=== PATIENT | female | born 1985 | race Caucasian/White ===

== ENCOUNTER 2017-10-04 14:43 | Emergency (ER) | payer BC ==
[2017-10-04 15:15] VITALS: BP 120/68
--- NOTE | 2017-10-04 15:31 | UC ---
FLU HPI - HPI Summary HPI Summary: 32 y/o female presents to the urgent care c/o dry cough with decrease appetite, diarrhea and nausea since 09/30/2017. Pt reports symptoms started with a dry cough about 3 weeks ago. However, Wednesday she developed diarrhea with 2 episodes each day. Yesterday she started to take Imodium PO and diarrhea is resolving. Pt feels weak, decrease appetite with mild SOB at times. She has been drinking fluids. Pt denies fever,vomiting, abdominal pain, chest pain - History of Current Complaint Hx Obtained From: Patient Hx Last Menstrual Period: 09/22/17 Onset/Duration: Gradual Onset, Lasting Weeks - 3 weeks of dry cough, Worse Since - 5 days with diarrhea Severity Currently: Mild Severity Initially: Moderate Pain Intensity: 0 Pain Scale Used: 0-10 Numeric Associated Signs & Symptoms: Positive: Myalgia, Cough, Headache. Negative: Fever - Risk Factors Influenza Risk Factors: Negative <Deloris Garcia - Last Filed: 10/06/17 10:54> <Isis Rojas - Last Filed: 10/07/17 09:45> - History of Current Complaint Chief Complaint: UCGeneralIllness Stated Complaint: NAUSEA,DIARRHEA,COUGH,BODY ACHES Time Seen by Provider: 10/04/17 15:17 - Allergy/Home Medications Allergies/Adverse Reactions: Allergies Allergy/AdvReac Type Severity Reaction Status Date / Time No Known Allergies Allergy Verified 10/04/17 15:15 Home Medications: Home Medications Loperamide CAP* [Imodium CAP*] 2 mg PO Q4H PRN 10/04/17 [History Confirmed 10/04] PMH/Surg Hx/FS Hx/Imm Hx Previously Healthy: Yes - Pt denies PMHX - Surgical History Surgical History: Yes Surgery Procedure, Year, and Place: SINUS SURGERY REMOVED POLYPS - Family History Known Family History: Positive: Cardiac Disease, Hypertension Family History: Dyslipidemia - Social History Occupation: Employed Full-time Lives: With Family Alcohol Use: None Substance Use Type: None Smoking Status (MU): Former Smoker <Deloris Garcia - Last Filed: 10/06/17 10:54> Review of Systems Constitutional: Fatigue, Other - body aches Skin: Negative Eyes: Negative ENT: Negative Respiratory: Cough - dry Cardiovascular: Negative Gastrointestinal: Diarrhea Genitourinary: Negative Motor: Negative Neurovascular: Negative Musculoskeletal: Negative Neurological: Headache Psychological: Negative Is Patient Immunocompromised?: No All Other Systems Reviewed And Are Negative: Yes <RadhaDeloris - Last Filed: 10/06/17 10:54> Physical Exam Triage Information Reviewed: Yes Vital Signs: Initial Vital Signs Temp 99.6 F 10/04/17 15:10 Pulse 77 10/04/17 15:10 Resp 16 10/04/17 15:10 BP 120/68 10/04/17 15:10 Pulse Ox 99 10/04/17 15:10 - Additional Comments Vital Signs Reviewed: Yes General:Patient is a well developed and nourished female who is sitting comfortable in the examining table. Patient is not in any acute respiratory distress. Eyes: Positive: Conjunctiva Clear - PERRLA, EOMI, fundi grossly normal ENT: Positive: Normal ENT inspection, Hearing grossly normal, Pharynx normal, TMs normal Neck: Positive: Supple, Nontender, No Lymphadenopathy Respiratory: Positive: Chest non-tender, Lungs clear, Normal breath sounds, No respiratory distress Cardiovascular: Positive: RRR,S1 and S2 present, No Murmur, Pulses Normal, Brisk Capillary Refill Abdomen Description: Positive: Nontender, Flat with no distention. No surface trauma, scars, incisions. hyperactive bowel sounds present in all four quadrants. No tenderness, guarding, rigidity to palpation. No masses palpated, no pulsation in epigastric area. No organomegaly. Negative Phoenix signs. No periumbilical tenderness. No rebound in the lower quadrants. NT over McBurneys point. Good femoral pulses bilaterally. No hernia noted. No CVAT bilaterally Musculoskeletal: Positive: Strength Intact, ROM Intact, No Edema,FROM in all major joints, no edema, no cyanosis or clubbing. Neuro: Alert and oriented x 3. No acute neurological deficits. Speech is normal. Psychological: WNL Skin: Dry and warm <Deloris Garcia - Last Filed: 10/06/17 10:54> Vital Signs: Initial Vital Signs Temp 99.6 F 10/04/17 15:10 Pulse 77 10/04/17 15:10 Resp 16 10/04/17 15:10 BP 120/68 10/04/17 15:10 Pulse Ox 99 10/04/17 15:10 <Isis Rojas - Last Filed: 10/07/17 09:45> Flu Course/Dx - Course Course Of Treatment: 32 y/o female presents to the urgent care c/o dry cough with decrease appetite, diarrhea and nausea since 09/30/2017. Pt reports symptoms started with a dry cough about 3 weeks ago. However, Wednesday she developed diarrhea with 2 episodes each day. Yesterday she started to take Imodium PO and diarrhea is resolving. Pt feels weak, decrease appetite with mild SOB at times. She has been drinking fluids. Pt denies fever,vomiting, abdominal pain, chest pain. Hx obtained. PE WNL. Dirrhea is reolving today. Pt advised to continue with Increase fluid intake w/ gatorade, eat soft meals and rest. Rx Tessalon tabs PO to alleviate cough.However if symptoms worsen and abdominal pain develops to go Immediately to the ER for further management. Pt explained D/C instructions. Pt understood and agreed w/ plan of care. Pt left the clinic ambulating, A&OX3 - Differential Dx/Diagnosis Differential Diagnosis/HQI/PQRI: Bronchitis, Influenza, Upper Respiratory Infection, Other - gastroenteritis, viral syndrome Provider Diagnoses: 1- Gastroenteritis. 2- Cough <Deloris Garcia - Last Filed: 10/06/17 10:54> Discharge <Deloris Garcia - Last Filed: 10/06/17 10:54> <Isis Rojas - Last Filed: 10/07/17 09:45> - Discharge Plan Condition: Stable Disposition: HOME Prescriptions: Benzonatate CAP* [Tessalon 100 MG CAP*] 100 mg PO TID #15 cap Patient Education Materials: Gastroenteritis (ED) Forms: *Work Release Referrals: [facility] [place] [facility] REFERRAL [Outside] - 3 Days Additional Instructions: 1- Please increase fluid intake with Gatorade or Pedialyte OTC. eat soft meals and rest. 2- Keep taking Imodium PO as directed to alleviate diarrhea 3- If you develops fever or abdominal pain w/ recurrent episodes of diarrhea please go the ER, otherwise f/u with your PCP if diarrhea not resolving in 2-3 days 4- Please take Tessalon tabs PO as directed to alleviate cough Attestation Statement User Type: Provider - I was available for consult. This patient was seen by the KADE[facility]. The patient was not presented to, seen by, or examined by me. -Brody <Isis Rojas - Last Filed: 10/07/17 09:45>
== END 2017-10-04 15:47 | disposition home or self-care (01) ==
LOC: UCCORT 14:43
DX: K52.9 Noninfective gastroenteritis and colitis, unspecified (principal); R05 Cough; M79.1 Myalgia; R51 Headache; Z87.891 Personal history of nicotine dependence
CPT/HCPCS: 99212; G0463

== ENCOUNTER 2017-12-07 12:26 | Emergency (ER) | payer BC ==
[2017-12-07 13:21] VITALS: BP 100/88
--- NOTE | 2017-12-07 13:26 | UC ---
Throat Pain/Nasal Maco HPI - HPI Summary HPI Summary: sinus pain and pressure x 2 weeks nasal congestion , pnd, no fever, no chills no cough - History of Current Complaint Chief Complaint: UCRespiratory Stated Complaint: SINUSES Time Seen by Provider: 12/07/17 13:07 Hx Obtained From: Patient Hx Last Menstrual Period: 11/29/17 ?: No Onset/Duration: Gradual Onset, Lasting Weeks - 2, Still Present Severity: Moderate Pain Intensity: 7 Cough: None Associated Signs & Symptoms: Positive: Sinus Discomfort, Nasal Discharge. Negative: Negative, Dysphagia, FB Sensation, Drooling, Wheezing, Hoarseness, Fever, Vomiting, Rash - Allergies/Home Medications Allergies/Adverse Reactions: Allergies Allergy/AdvReac Type Severity Reaction Status Date / Time No Known Allergies Allergy Verified 12/07/17 13:12 PMH/Surg Hx/FS Hx/Imm Hx Previously Healthy: Yes - Surgical History Surgical History: Yes Surgery Procedure, Year, and Place: SINUS SURGERY REMOVED POLYPS - Family History Known Family History: Positive: None, Cardiac Disease, Hypertension Family History: Dyslipidemia - Social History Alcohol Use: None Substance Use Type: None Smoking Status (MU): Never Smoked Tobacco Review of Systems Constitutional: Negative Skin: Negative Eyes: Negative ENT: Nasal Discharge, Sinus Congestion, Sinus Pain/Tenderness Respiratory: Negative Cardiovascular: Negative Gastrointestinal: Negative Is Patient Immunocompromised?: No All Other Systems Reviewed And Are Negative: Yes Physical Exam Triage Information Reviewed: Yes Appearance: Well-Appearing, No Pain Distress, Well-Nourished Vital Signs: Initial Vital Signs Temp 98.9 F 12/07/17 13:14 Pulse 81 12/07/17 13:14 Resp 18 12/07/17 13:14 BP 100/88 12/07/17 13:14 Pulse Ox 100 12/07/17 13:14 Vital Signs Reviewed: Yes Eyes: Positive: Conjunctiva Clear ENT: Positive: Normal ENT inspection, Hearing grossly normal, Pharynx normal, Nasal congestion, Nasal drainage, TMs normal, Sinus tenderness Neck: Positive: Supple, Nontender, No Lymphadenopathy Respiratory: Positive: Chest non-tender, Lungs clear, Normal breath sounds, No respiratory distress Cardiovascular: Positive: RRR, No Murmur, Pulses Normal Musculoskeletal: Positive: Strength Intact, ROM Intact, No Edema Skin Exam: Normal Throat Pain/Nasal Course/Dx - Differential Dx/Diagnosis Provider Diagnoses: sinusitis Discharge - Sign-Out/Discharge Documenting (check all that apply): Discharge - Discharge Plan Condition: Stable Disposition: HOME Prescriptions: Amoxicillin/Clavulanate TAB* [Augmentin TAB 875*] 875 mg PO BID #20 tab Patient Education Materials: Sinusitis (ED) Referrals: Non Staff,Doctor [Primary Care Provider] - If Needed - Billing Disposition and Condition Condition: STABLE Disposition: HOME
== END 2017-12-07 13:28 | disposition home or self-care (01) ==
LOC: UCCORT 12:26
DX: J32.9 Chronic sinusitis, unspecified (principal)
CPT/HCPCS: 99212; G0463

== ENCOUNTER 2018-07-13 14:21 | Emergency (ER) | payer BC ==
[2018-07-13 15:08] VITALS: BP 117/77
[2018-07-13] MEDS ORDERED: Ibuprofen TAB* 600 MG PO ONE (15:10)
--- NOTE | 2018-07-13 15:24 | UC ---
Epistaxis Nasal HPI - HPI Summary HPI Summary: 33 yo F, hx of sinus resection of multiple polyps many years ago, presenting w bilateral facial pain, ARANA, congestion. Symptoms somewhat improved by mucinex-DM but she has severe congestion if not taking it. Denies fever. +mild cough. does have some nasal drainage. Symptoms have been waxing/waning for several weeks. not currently taking any analgesics. medications reviewed w patient - History of Current Complaint Chief Complaint: UCGeneralIllness Stated Complaint: SINUSES Time Seen by Provider: 07/13/18 15:09 Hx Last Menstrual Period: 06/30/18 Pain Intensity: 3 - Allergies/Home Medications Allergies/Adverse Reactions: Allergies Allergy/AdvReac Type Severity Reaction Status Date / Time No Known Allergies Allergy Verified 07/13/18 15:08 Home Medications: Home Medications Diphenhydra/Phenyleph/Acetamin [Delsym Cough-Cold Nighttime Lq] 180 ml PO BEDTIME 07/13/18 [History Confirmed 07/13/18] Guaifenesin/Pseudo 600/60(NF) [Mucinex D 600/60 (NF)] 1 tab PO Q12H 07/13/18 [ History Confirmed 07/13/18] PMH/Surg Hx/FS Hx/Imm Hx Previously Healthy: Yes - Surgical History Surgical History: Yes Surgery Procedure, Year, and Place: SINUS SURGERY REMOVED POLYPS - Family History Known Family History: Positive: None, Cardiac Disease, Hypertension Family History: Dyslipidemia - Social History Alcohol Use: Occasionally Substance Use Type: None Smoking Status (MU): Never Smoked Tobacco Review of Systems Skin: Negative Respiratory: Cough Gastrointestinal: Negative Is Patient Immunocompromised?: No All Other Systems Reviewed And Are Negative: Yes Physical Exam Triage Information Reviewed: Yes Appearance: Well-Appearing, No Pain Distress, Well-Nourished Vital Signs: Initial Vital Signs Temp 98.7 F 07/13/18 15:04 Pulse 91 07/13/18 15:04 Resp 15 07/13/18 15:04 BP 117/77 07/13/18 15:04 Pulse Ox 100 07/13/18 15:04 Vital Signs Reviewed: Yes Eyes: Positive: Conjunctiva Clear ENT: Positive: Other - mild L maxillary sinus tenderness Respiratory: Positive: Lungs clear, Normal breath sounds, No respiratory distress, No accessory muscle use Musculoskeletal Exam: Normal Musculoskeletal: Positive: Strength Intact Neurological: Positive: Alert, Muscle Tone Normal Psychological Exam: Normal Psychological: Positive: Age Appropriate Behavior Skin Exam: Normal Skin: Negative: rashes Epistaxis Nasal Course/Dx - Differential Dx/Diagnosis Differential Diagnosis/HQI/PQRI: Allergic Rhinitis, Sinusitis Provider Diagnoses: viral sinusitis Discharge - Sign-Out/Discharge Documenting (check all that apply): Patient Departure All imaging exams completed and their final reports reviewed: No Studies - Discharge Plan Condition: Stable Disposition: HOME Patient Education Materials: Rhinosinusitis (ED) Referrals: Dona Franks MD [Primary Care Provider] - Additional Instructions: In addition to picking up prescribed medications, take 600 mg ibuprofen eery 6 hr for pain and apply warm compresses to affected side of face. If symptoms not improved in 2 days with these therapies, return to Urgent Care or Emergency Department for further eval and treatment - Billing Disposition and Condition Condition: STABLE Disposition: Home
== END 2018-07-13 15:39 | disposition home or self-care (01) ==
LOC: UCCORT 14:21
DX: J32.9 Chronic sinusitis, unspecified (principal); B97.89 Other viral agents as the cause of diseases classified elsewhere; Z85.22 Personal history of malignant neoplasm of nasal cavities, middle ear, and accessory sinuses
CPT/HCPCS: 99202; A9270-GY; G0463